=== PATIENT | male | born 1950 | race Caucasian/White ===

== ENCOUNTER → 2017-01-08 | Day surgery (SDC) | payer OTHER ==
[~2017-01-08] MED LIST: BUPIVACAINE/EPINEPHRINE 0.25% PF 30 ML VIAL ONE; KETOROLAC TROMETHAMINE 30 MG/ML (IVP) VIAL IV PUSH ONE; LACTATED RINGER'S 1000 ML INJ 1,000 ML ONE; MEPERIDINE HCL 25 MG/ML VIAL ONE; MIDAZOLAM HCL 2 MG/2 ML VIAL ONE; MORPHINE SULFATE 4 MG/ML INJ ONE; ONDANSETRON HCL 4 MG/2 ML VIAL IV PUSH ONE; PROPOFOL 200 MG/20 ML AMP IV ONE; ceFAZolin INJ 1,000 MG VIAL ONE; oxyCODONE/ACETAMINOPHEN 5 MG/325 MG TAB ONE
--- NOTE | 2017-01-08 13:26 | TN ---
cc: LENA GONZALEZ MD DATE OF SURGERY 01/08/2017 ATTENDING SURGEON Lena Gonzalez MD PREOPERATIVE DIAGNOSIS Right knee torn medial meniscus, possible torn lateral meniscus. POSTOPERATIVE DIAGNOSIS Right knee torn medial meniscus, chondromalacia medial femoral condyle. PROCEDURE Right knee arthroscopy with partial medial meniscectomy. PROCEDURE IN DETAIL Informed consent was obtained, the patient taken to the operating room and placed in the supine position on the operating table. He was administered a general anesthesia by Dr. Jacques of the Anesthesia Department. At that time, her right leg had a tourniquet applied and was prepped with Betadine soap, followed by Betadine paint. Draping commenced with sterile down sheets, sterile towel about the tourniquet, a U drape was applied, stockinette was applied to foot and calf. This was wrapped with a Coban and extremity drape was applied. The leg was elevated. The table was elevated to maximum height. A time-out was held and confirmed. The patient had been given gram of Ancef prior to the initiation of the operative procedure. At that time, tourniquet was inflated to 300 mmHg. The leg was allowed to flex over the side of the operating table. An 18 gauge spinal needle was placed in the region of the lateral infrapatellar portal. This region was infiltrated with 4 cc of 0.25% Marcaine with epinephrine. Infiltration was also performed into the medial infrapatellar portal and transpatellar tendon portal region. A small incision was made with an 11-blade in the region of the transpatellar tendon portal and an inflow cannulas was placed. A second incision was placed in the region of the lateral infrapatellar portal. The arthroscopic cannula was placed and diagnostic arthroscopy commenced. There was a loose piece seen floating around at the edge of the lateral compartment which was grasped with a grasper through a medial portal which was then established and removed. At that point, the medial compartment was examined. The medial meniscus had a complex degenerative tear involving zones one and a good portion of zone two. There was a large flap of meniscus folded upwards in zone two. Utilizing upbiting basket forceps and the [place] meniscal shaver, the medial meniscus was debrided to a stable rim. It is noted there is a full thickness defect approximately a quarter-sized on the medial femoral condyle which was at the edges debrided. The scope was maneuvered in the intercondylar notch and the edge of the lateral compartment. The leg was placed in a figure four position. There was slight fraying noted at the posterior horn of the lateral meniscus which was debrided with a shaver. The lateral meniscus otherwise appeared intact. The popliteus tendon appeared intact. The lateral femoral condyle and left tibial plateau appeared intact. The scope was placed in the intercondylar notch. Anterior and posterior cruciate ligaments appeared intact. The scope was placed in the posterior medial and posterolateral compartments which otherwise appeared normal. The scope was placed in suprapatellar pouch. This appeared normal. The undersurface of patella and trochlear groove had some mild degenerative changes. There was some material debrided in the plica region. At that time, the knee was thoroughly irrigated and suctioned. All cannulas were removed. Each portal was closed with a single 4-0 nylon stitch. Steri-Strips, 4x4s, Sof-Rol and Roni wrap were applied to the patient's knee. At that time, the tourniquet was deflated. Total tourniquet time was 49 minutes. The patient tolerated the procedure well and was taken to the recovery room in stable condition. At the completion of the procedure, sponge count, instrument counts and needle counts were correct. At total of 9000 cc of sterile saline was utilized for irrigation during this procedure. Estimated blood loss less than 10 cc. MD JOEL Olson/LJ /1:02 PM /1:10 PM
== END | disposition home or self-care (01) ==
LOC: ESDC 10:21
PROVIDERS: ATTEND Orthopaedic Surgery
DX: S83.231A Complex tear of medial meniscus, current injury, right knee, initial encounter (principal)
CPT/HCPCS: 01400; 29881; J0690; J1885; J2175; J2250; J2270; J2405; J3010; J7120